=== PATIENT | female | born 1955 | race Two or more races ===

== ENCOUNTER 2021-02-12 20:40 | Emergency (ER) | payer SELFPAY ==
[~2021-02-12] VITALS: Ht 160 cm; Wt 68.0 kg
[2021-02-12 21:59] VITALS: BP 178/83
[2021-02-12] MEDS ORDERED: SUMAtriptan SUCC 6 MG/0.5 ML VIAL. SQ ONE (22:00)
[2021-02-12] MEDS ORDERED: ORPHENADRINE CITRATE 60 MG/2 ML VIAL. IV ONE (22:00)
[2021-02-12] MEDS ORDERED: ONDANSETRON PF 4 MG/2 ML VIAL. IV ONE (22:00)
[2021-02-12] MEDS ORDERED: KETOROLAC 30 MG/ML VIAL. IVP ONE (22:00)
--- NOTE | 2021-02-12 22:24 | PHYS DOC ---
Past Medical History Past Medical History: Hypertension Past Surgical History: Hysterectomy Drug Use: None General Adult EDM: Chief Complaint: GENERALIZED BODY ACHES HPI: HPI: Patient is a 65 year old female with history of high blood pressure who presents with headache, sore throat and nausea that began today. She rates her headache 8/10 nonradiating pressure. Patient states that she feels stiffness in her neck that spreads to her head. She has taken her blood pressure medication as prescribed and Tylenol to treat her pain. Patient also reports increased stress at home recently, but does not elaborate. She denies fever, chills, weakness, abdominal pain, diarrhea, vomiting. Review of Systems: Review of Systems: 12 systems reviewed. ROS negative except as mentioned in HPI. Heart Score: C/O Chest Pain: No Current Medications: Current Medications Medications (Trade) Dose Ordered Sig/Ernesto Start Time Stop Time Status Last Admin Dose Admin Ketorolac Tromethamine (Toradol 30mg Vial) 15 mg 1X ONCE 02/12/21 22:00 02/12/21 22:06 DC Ondansetron HCl (Zofran) 8 mg 1X ONCE 02/12/21 22:00 02/12/21 22:06 DC Orphenadrine Citrate (Norflex) 60 mg 1X ONCE 02/12/21 22:00 02/12/21 22:06 DC Sumatriptan Succinate (Imitrex) 6 mg 1X ONCE 02/12/21 22:00 02/12/21 22:06 DC Allergies: Allergies: Allergies Coded Allergies Type Severity Reaction Last Updated Verified No Known Drug Allergies 02/12/21 No Physical Exam: PE: Constitutional: Well developed, well nourished, no acute distress, non-toxic appearance. HENT: Normocephalic, atraumatic, bilateral external ears without deformity or discharge, oropharynx moist, no oral exudates, no pharyngeal erythema, nose without deformity or discharge. Eyes: PERRLA, EOMI, conjunctiva normal, no discharge. Neck: Normal range of motion, no step-off, bilateral paraspinal tenderness tenderness with spasm appreciated, supple, no stridor. Cardiovascular: Heart rate regular rhythm, no murmur. Lungs & Thorax: Bilateral breath sounds clear to auscultation. Abdomen: Bowel sounds normal, soft, no tenderness, no masses, no pulsatile masses. Skin: Warm, dry, no erythema, no rash. Neurologic: Alert and oriented x4, no focal deficits noted. Current Patient Data: Vital Signs: Vital Signs Date Time Temp Pulse Resp B/P (MAP) Pulse Ox O2 Delivery O2 Flow Rate FiO2 02/12/21 21:59 98.4 75 20 178/83 (114) 95 Room Air 98.4 Course & Med Decision Making: Course & Med Decision Making Pertinent Labs and Imaging studies reviewed. (See chart for details) Patient is a 65-year-old female with history of hypertension who presents with headache consistent with tension type. Patient will be provided with Toradol, Norflex, sumatriptan and Zofran. On reevaluation, patient states that her symptoms are much better. She does state that she feels very drowsy, which I then counseled her on side effects of these medications. She and her family at bedside are agreeable to sumatriptan and Norflex prescriptions should symptoms return in the future. All questions were answered. Patient and her family at bedside understand and are agreeable to discharge plan. Christiano Disclaimer: Christiano Disclaimer: This electronic medical record was generated, in whole or in part, using a voice recognition dictation system. Departure Departure Impression: Primary Impression: Tension-type headache, unspecified, not intractable Qualified Codes: G44.209 - Tension-type headache, unspecified, not intractable Disposition: 01 HOME / SELF CARE / HOMELESS Condition: IMPROVED Referrals: NO PCP (PCP) Patient Instructions: Stress Management, Tension Headache, [id number] Scripts Ondansetron Hcl (ZOFRAN) 4 Mg Tablet 1 TAB PO PRN Q8HRS PRN for NAUSEA/VOMITING, #20 TAB Prov: JAN WRIGHT 02/13/21 Orphenadrine Citrate (ORPHENADRINE CITRATE) 100 Mg Tablet.er 1 TAB PO PRN Q12HRS PRN for MUSCLE PAIN, #10 TAB 1 Refill Prov: JAN WRIGHT 02/13/21 JAN WRIGHT Feb 12, 2021 22:24
[2021-02-13] MEDS ORDERED: ONDA4TAB7 PO (00:14)
[2021-02-13] MEDS ORDERED: ORPH100T PO (00:14)
== END 2021-02-13 01:04 | disposition home or self-care (01) ==
LOC: ER 20:40
DX: G44.209 Tension-type headache, unspecified, not intractable (principal); J02.9 Acute pharyngitis, unspecified; R11.0 Nausea; I10 Essential (primary) hypertension; Z90.710 Acquired absence of both cervix and uterus
CPT/HCPCS: 96372; 96374; 96375; 99284; J1885; J2360; J2405; J3030